=== PATIENT | female | born 1940 | race Caucasian/White ===

== ENCOUNTER 2018-11-17 14:17 | Inpatient (IN) | payer MEDICARE, MEDICAID ==
[~2018-11-17] VITALS: Ht 167.6 cm; Wt 82.1 kg
[2018-11-17 15:12] LABS: BASOPHILS % 0.7 % (0.0-2.0); EOSINOPHILS % 0.2 % (0.0-5.0); HEMATOCRIT. 27.1 % (36.0-48.0); HEMOGLOBIN. 8.8 g/dL (12.0-16.0); LYMPHOCYTES % 13.8 % (20.0-50.0); MEAN CORPUSCULAR HEMOGLOBIN 26.8 pg (28.0-32.0); MEAN CORPUSCULAR VOLUME 82.4 fL (81.0-99.0); MONOCYTES % 4.8 % (2.0-8.0); NEUTROPHILS % 80.5 % (40.0-76.0); PLATELET 207 x1000/uL (130-400); RED CELL DISTRIBUTION WIDTH 16.7 % (11.6-14.6)
[2018-11-17 15:17] LABS: CHLORIDE 106 mEq/L (98-107)
[2018-11-17] MEDS ORDERED: LORAZEPAM 2MG/ML CPJ IV PRN (23:45)
[2018-11-17] MEDS ORDERED: CLONIDINE 0.1MG TABLET PO PRN (23:45)
[2018-11-17] MEDS ORDERED: HYDROCODONE/ACETAMINOPHEN 5/325MG TABLET PO PRN (23:45)
[2018-11-17] MEDS ORDERED: ONDANSETRON HCL 4MG/2ML INJ IV PRN (23:45)
[2018-11-18] VITALS (7 sets, daily range): BP systolic 109–151; BP diastolic 45–76
[2018-11-18 00:20] LABS: TOTAL IRON BINDING CAPACITY 317 ug/dL (250-450)
[2018-11-18 01:59] LABS: CLARITY URINE CLOUDY (CLEAR); COLOR URINE YELLOW (YELLOW); KETONES URINE NEGATIVE (NEGATIVE); LEUKOCYTE ESTERASE URINE 3+ (NEGATIVE); NITRITE URINE NEGATIVE (NEGATIVE); OCCULT BLOOD URINE TRACE (NEGATIVE); PH URINE 6.5 (4.5-8.0); PROTEIN URINE NEGATIVE (NEGATIVE); SPECIFIC GRAVITY URINE 1.014 (1.005-1.030); UROBILINOGEN URINE 0.2 E.U./dL (0.2-1.0)
[2018-11-18 02:14] LABS: *AMPHETAMINES SCREEN URINE NEGATIVE (NEGATIVE); *BARBITURATES SCREEN URINE NEGATIVE (NEGATIVE); *BENZODIAZEPINES SCREEN URINE NEGATIVE (NEGATIVE); *COCAINE SCREEN URINE NEGATIVE (NEGATIVE); METHADONE URINE SCREEN NEGATIVE (NEGATIVE); OPIATES URINE SCREEN NEGATIVE (NEGATIVE)
[2018-11-18 02:15] LABS: CANNABINOID URINE SCREEN NEGATIVE (NEGATIVE); PHENCYCLIDINE URINE SCREEN NEGATIVE (NEGATIVE)
[2018-11-18] MEDS ORDERED: DEXTROSE 50% WATER 50ML SYRINGE IV PRN (05:00)
[2018-11-18] MEDS: SODIUM CHLORIDE 0.9% 1,000 ML IV SCH ×2 (05:35→21:08)
[2018-11-18] MEDS ORDERED: CEFTRIAXONE 1 G PREMIX 50 ML IV SCH (06:00)
[2018-11-18] MEDS: BLOOD SUGAR DIAGNOSTIC STRIP TEST SCH ×4 (06:32→21:06)
[2018-11-18] MEDS: INSULIN LISPRO 100 UNITS/ML SUBCUT SCH ×4 (07:30→21:05)
[2018-11-18] MEDS ORDERED: ENOXAPARIN 40MG/0.4ML SYR SUBCUT SCH ×2 (09:00→10:30)
[2018-11-18] MEDS ORDERED: LEVE1000 PO (11:18)
[2018-11-18] MEDS ORDERED: APIX5TAB PO (11:18)
[2018-11-18] MEDS ORDERED: WARF4TAB71 PO (11:18)
[2018-11-18] MEDS ORDERED: ATOR10TA69 PO (11:18)
[2018-11-18] MEDS ORDERED: DIGO125T82 PO (11:18)
[2018-11-18] MEDS ORDERED: CALC-769 PO (11:18)
[2018-11-18] MEDS ORDERED: SENN-139 PO (11:18)
[2018-11-18] MEDS ORDERED: MAX GT (11:18)
[2018-11-18 11:45] LABS: DIGOXIN 0.8 ng/mL (0.9-2.0)
[2018-11-18] MEDS: IRON SUCROSE COMPLEX 100 MG/5 ML ML IV SCH (11:45)
[2018-11-18] MEDS: APIXABAN 5 MG TABLET PO SCH ×2 (12:29→16:47)
[2018-11-18] MEDS: DILTIAZEM HCL 30MG TABLET PO SCH ×2 (14:00→21:07)
[2018-11-18] MEDS: LEVETIRACETAM 500MG TABLET PO SCH (16:47)
[2018-11-18] MEDS ORDERED: DIGOXIN 125MCG TABLET PO SCH (18:00)
[2018-11-18] MEDS ORDERED: ENOXAPARIN 80MG/0.8ML SYR SUBCUT SCH (21:00)
[2018-11-19] VITALS: BP 111/70
[2018-11-19 04:07] VITALS: BP 116/56
[2018-11-19] MEDS: DILTIAZEM HCL 30MG TABLET PO SCH ×2 (06:00→13:27)
[2018-11-19] MEDS ORDERED: CEFTRIAXONE 1 G PREMIX 50 ML IV SCH (06:00)
[2018-11-19] MEDS: BLOOD SUGAR DIAGNOSTIC STRIP TEST SCH ×2 (06:09→12:20)
[2018-11-19 06:39] LABS: BASOPHILS % 0.8 % (0.0-2.0); EOSINOPHILS % 1.4 % (0.0-5.0); HEMATOCRIT. 23.8 % (36.0-48.0); HEMOGLOBIN. 7.8 g/dL (12.0-16.0); LYMPHOCYTES % 26.4 % (20.0-50.0); MEAN CORPUSCULAR VOLUME 82.4 fL (81.0-99.0); MEAN PLATELET VOLUME 9.8 fl (7.4-10.4); MONOCYTES % 6.6 % (2.0-8.0); NEUTROPHILS % 64.8 % (40.0-76.0); PLATELET 197 x1000/uL (130-400); RED BLOOD CELL COUNT 2.89 mill/uL (4.2-5.4); RED CELL DISTRIBUTION WIDTH 16.9 % (11.6-14.6)
[2018-11-19] MEDS: INSULIN LISPRO 100 UNITS/ML SUBCUT SCH ×2 (07:50→12:50)
[2018-11-19 07:55] VITALS: BP_SYST 108; BP_SYST 133; BP_DIAS 49; BP_DIAS 66
[2018-11-19 07:56] VITALS: BP 128/59
[2018-11-19] MEDS: IRON SUCROSE COMPLEX 100 MG/5 ML ML IV SCH (10:04)
[2018-11-19] MEDS: LEVETIRACETAM 500MG TABLET PO SCH (10:05)
[2018-11-19] MEDS: APIXABAN 5 MG TABLET PO SCH (10:05)
[2018-11-19 11:57] VITALS: BP 119/53
[2018-11-19] MEDS ORDERED: TRIAMTERENE/HYDROCHLOROTHIAZID 75/50MG TABLET GT SCH (13:00)
[2018-11-19] MEDS ORDERED: DIGOXIN 125MCG TABLET PO SCH (18:00)
[2018-11-20] MEDS ORDERED: WARFARIN SODIUM 4MG TABLET PO SCH (09:00)
== END 2018-11-19 16:08 | disposition home or self-care (01) | DRG 74 ==
LOC: ER 14:17 → 6WST 17:50 → EDBEDREQTM 17:51 → EDBEDREQ 17:51 → ENRESERV 11-18 03:50
PROVIDERS: ADMIT Internal Medicine Nephrology; ATTEND Internal Medicine Nephrology
DX: G90.8 Other disorders of autonomic nervous system (principal); E44.1 Mild protein-calorie malnutrition; N39.0 Urinary tract infection, site not specified; I50.40 Unspecified combined systolic (congestive) and diastolic (congestive) heart failure; E11.65 Type 2 diabetes mellitus with hyperglycemia; E66.9 Obesity, unspecified; D50.0 Iron deficiency anemia secondary to blood loss (chronic); E86.0 Dehydration; I48.2 Chronic atrial fibrillation; I11.0 Hypertensive heart disease with heart failure; Z79.4 Long term (current) use of insulin; Z82.49 Family history of ischemic heart disease and other diseases of the circulatory system; Z88.0 Allergy status to penicillin; Z88.5 Allergy status to narcotic agent; Z88.1 Allergy status to other antibiotic agents; Z90.49 Acquired absence of other specified parts of digestive tract; Z71.3 Dietary counseling and surveillance; Z68.29 Body mass index [BMI] 29.0-29.9, adult
CPT/HCPCS: 36415; 71045; 80048; 80061; 80162; 80305; 82728; 82962; 83036; 83540; 83550; 83735; 83880; 84443; 84484; 93005; 93306; 93880; 97162; 99285; J0696; J1650; J1815

== ENCOUNTER 2022-05-17 10:08 | Emergency (ER) | payer MEDICARE, MEDICAID ==
[~2022-05-17] VITALS: Ht 167.6 cm; Wt 73.0 kg
[~2022-05-17 10:08] MED LIST: APIX5TAB PO; ATOR10TA69 PO; CALC-769 PO; DIGO125T80 PO; LEVE1000 PO; MAX GT; SENN-139 PO; WARF4TAB71 PO
[2022-05-17] MEDS ORDERED: KETOROLAC 60MG/2ML VIAL IM ONE (11:45)
[2022-05-17] MEDS ORDERED: SULFAMETHOXAZOLE/TRIMETHOPRIM 800/160MG TABLET PO ONE (11:45)
[2022-05-17 12:41] LABS: CLARITY URINE TURBID (CLEAR); COLOR URINE YELLOW (YELLOW); KETONES URINE NEGATIVE (NEGATIVE); LEUKOCYTE ESTERASE URINE 3+ (NEGATIVE); NITRITE URINE POSITIVE (NEGATIVE); OCCULT BLOOD URINE 1+ (NEGATIVE); PROTEIN URINE 1+ (NEGATIVE); SPECIFIC GRAVITY URINE 1.017 (1.005-1.030)
[2022-05-17] MEDS ORDERED: TOPUD MT (13:43)
[2022-05-17] MEDS ORDERED: SULF1TAB48 MT (13:43)
[2022-05-17 13:55] LABS: BASOPHILS % 0.9 % (0.0-2.0); EOSINOPHILS % 0.8 % (0.0-5.0); HEMATOCRIT. 37.3 % (36.0-48.0); HEMOGLOBIN. 12.4 g/dL (12.0-16.0); LYMPHOCYTES % 22.1 % (20.0-50.0); MEAN CORPUSCULAR HEMOGLOBIN 30.4 pg (28.0-32.0); MEAN CORPUSCULAR VOLUME 91.2 fL (81.0-99.0); MEAN PLATELET VOLUME 8.3 fl (7.4-10.4); MONOCYTES % 5.4 % (2.0-8.0); NEUTROPHILS % 70.8 % (40.0-76.0); PLATELET 332 x1000/uL (130-400); RED BLOOD CELL COUNT 4.09 mill/uL (4.2-5.4); RED CELL DISTRIBUTION WIDTH 13.8 % (11.6-14.6)
[2022-05-17 14:01] LABS: CHLORIDE 103 mEq/L (98-107)
[2022-05-17 14:07] LABS: PARTIAL THROMBOPLASTIN TIME 27.9 sec (23.4-31.0); PROTHROMBIN TIME 10.5 sec (9.6-11.0)
[2022-05-17 16:34] VITALS: BP 132/81
== END 2022-05-17 11:39 | disposition home or self-care (01) ==
LOC: ER 10:49
DX: N39.0 Urinary tract infection, site not specified (principal); Z88.0 Allergy status to penicillin; Z88.5 Allergy status to narcotic agent; Z88.1 Allergy status to other antibiotic agents
CPT/HCPCS: 36415; 80053; 81003; 83690; 85025; 85610; 85730; 87086; 96372; 99283; J1885

== ENCOUNTER 2023-03-18 07:45 | Inpatient (IN) | payer MEDICARE, MEDICAID ==
[~2023-03-18] VITALS: Ht 167.6 cm; Wt 73.9 kg
[~2023-03-18 07:45] MED LIST changes: +SULF1TAB48 MT; +TOPUD MT
[2023-03-18 07:46] VITALS: O2SAT 98
[2023-03-18 09:07] LABS: BASOPHILS % 0.5 % (0.0-2.0); EOSINOPHILS % 0.3 % (0.0-5.0); HEMATOCRIT. 39.9 % (36.0-48.0); HEMOGLOBIN. 12.5 g/dL (12.0-16.0); MEAN CORPUSCULAR HEMOGLOBIN 29.4 pg (28.0-32.0); MEAN CORPUSCULAR HGB CONC 31.3 g/dL (31.0-37.0); MEAN CORPUSCULAR VOLUME 94.1 fL (81.0-99.0); MEAN PLATELET VOLUME 9.4 fl (7.4-10.4); MONOCYTES % 5.2 % (2.0-8.0); PLATELET 213 x1000/uL (130-400); RED BLOOD CELL COUNT 4.25 mill/uL (4.2-5.4); WHITE BLOOD COUNT 11.3 x1000/uL (4.5-11.0)
[2023-03-18 09:31] LABS: CHLORIDE 107 mEq/L (98-107); INDEX HEMOLYSI 1 (1-3); INDEX ICTERIC 1 (1-4); INDEX LIPEMIC 1 (1-3); POTASSIUM 3.4 mEq/L (3.5-5.1); SODIUM 139 mEq/L (136-145)
[2023-03-18 09:41] LABS: ALANINE AMINOTRANSFERASE 16 IU/L (13-61); ALBUMIN 3.6 g/dL (3.4-5.0); ASPARTATE AMINOTRANSFERASE 14 IU/L (15-37); BILIRUBIN TOTAL 0.5 mg/dL (0.1-1.0); CALCIUM 9.1 mg/dL (8.5-10.1); CARBON DIOXIDE 25 mEq/L (21-32); CREATINE KINASE 531 IU/L (26-192); CREATININE 1.3 mg/dL (0.6-1.3); GLUCOSE 156 mg/dL (70-105); PROTEIN TOTAL 6.9 g/dL (6.0-8.3); TROPONIN I HIGH SENSITIVITY 16 ng/L (<54); UREA NITROGEN BLOOD 19 mg/dL (7-21)
[2023-03-18 10:16] LABS: LACTIC ACID 3.3 mmol/L (0.4-2.0)
[2023-03-18] MEDS ORDERED: MEROPENEM 1,000 MG in SODIUM CHLORIDE 0.9% 100 ML IV ONE (10:30)
[2023-03-18] MEDS ORDERED: VANCOMYCIN 1G PREMIX 200 ML IV ONE (10:30)
[2023-03-18] MEDS ORDERED: SODIUM CHLORIDE 0.9% 1000ML BAG (SEPSIS BOLUS) IV ONE (10:30)
[2023-03-18] MEDS ORDERED: ONDANSETRON HCL 4MG/2ML INJ IV PRN (15:00)
[2023-03-18] MEDS ORDERED: DOCUSATE SODIUM 100MG CAPSULE PO PRN (15:00)
[2023-03-18] MEDS ORDERED: IPRATROPIUM/ALBUTEROL 0.5-3(2.5)MG/3ML NEB HHN PRN (15:00)
[2023-03-18] MEDS ORDERED: CLONIDINE 0.1MG TABLET PO PRN (15:00)
[2023-03-18] MEDS ORDERED: ACETAMINOPHEN 325MG TABLET PO PRN (15:00)
[2023-03-18] MEDS ORDERED: DILTIAZEM HCL 30MG TABLET PO SCH (15:15)
[2023-03-18] MEDS ORDERED: POTASSIUM CHLORIDE 20MEQ TABLET SR PO SCH (15:15)
[2023-03-18] MEDS ORDERED: DIGOXIN 125MCG TABLET PO SCH (15:20)
[2023-03-18] MEDS ORDERED: VANCOMYCIN 1G PREMIX 200 ML IV NR (15:45)
[2023-03-18] MEDS ORDERED: MEROPENEM 1,000 MG in SODIUM CHLORIDE 0.9% 100 ML IV NR (15:45)
[2023-03-18] MEDS ORDERED: APIXABAN 5 MG TABLET PO SCH (17:00)
[2023-03-18] MEDS: DILTIAZEM HCL 30MG TABLET PO SCH (17:31)
[2023-03-18 21:00] VITALS: BP_SYST 141; BP_SYST 145; BP_DIAS 56; PULSE 112; PULSE 143; RESP 18; TEMP 98.2; TEMP 98.4
[2023-03-19] VITALS: BP 141/99; PULSE 133; RESP 20; TEMP 96.9
[2023-03-19] MEDS: DILTIAZEM HCL 30MG TABLET PO SCH ×2 (01:00→06:28)
[2023-03-19 04:00] VITALS: BP 114/84; PULSE 110; RESP 18; TEMP 97.1
[2023-03-19 06:57] LABS: BASOPHILS % 0.4 % (0.0-2.0); EOSINOPHILS % 1.9 % (0.0-5.0); HEMOGLOBIN. 11.2 g/dL (12.0-16.0); LYMPHOCYTES % 19.4 % (20.0-50.0); MEAN CORPUSCULAR HGB CONC 33.9 g/dL (31.0-37.0); MEAN CORPUSCULAR VOLUME 91.5 fL (81.0-99.0); MEAN PLATELET VOLUME 9.5 fl (7.4-10.4); MONOCYTES % 6.9 % (2.0-8.0); NEUTROPHILS % 71.4 % (40.0-76.0); PLATELET 183 x1000/uL (130-400); RED BLOOD CELL COUNT 3.61 mill/uL (4.2-5.4); RED CELL DISTRIBUTION WIDTH 13.7 % (11.6-14.6); WHITE BLOOD COUNT 7.7 x1000/uL (4.5-11.0)
[2023-03-19 08:00] VITALS: BP 152/91; PULSE 106; RESP 20; TEMP 98.2
[2023-03-19 08:10] LABS: CHLORIDE 106 mEq/L (98-107); INDEX HEMOLYSI 1 (1-3); INDEX ICTERIC 1 (1-4); INDEX LIPEMIC 1 (1-3); POTASSIUM 3.9 mEq/L (3.5-5.1); SODIUM 137 mEq/L (136-145)
[2023-03-19 08:33] LABS: CALCIUM 8.6 mg/dL (8.5-10.1); CARBON DIOXIDE 23 mEq/L (21-32); CREATININE 1.1 mg/dL (0.6-1.3); GLUCOSE 138 mg/dL (70-105); UREA NITROGEN BLOOD 17 mg/dL (7-21)
[2023-03-19 12:00] VITALS: BP 160/90; PULSE 136; RESP 22; TEMP 97.6
[2023-03-19] MEDS: ACETAMINOPHEN 325MG TABLET PO PRN ×2 (12:24→20:34)
[2023-03-19 13:07] LABS: DIGOXIN < 0.1 ng/mL (0.9-2.0)
[2023-03-19] MEDS: DILTIAZEM HCL 60MG TABLET PO SCH ×2 (13:22→18:41)
[2023-03-19] MEDS: LORAZEPAM 2MG/ML CPJ IV PRN ×2 (14:55→21:09)
[2023-03-19 16:00] VITALS: BP 131/76; PULSE 75; RESP 20; TEMP 97
[2023-03-19 16:02] LABS: T4 FREE 1.21 ng/dL (0.76-1.46); THYROID STIMULATING HORMONE 1.3 uIU/mL (0.36-3.74)
[2023-03-19] MEDS: APIXABAN 5 MG TABLET PO SCH (17:27)
[2023-03-19 18:04] LABS: CLARITY URINE CLEAR (CLEAR); COLOR URINE DARK YELLOW (YELLOW); GLUCOSE URINE NEGATIVE (NEGATIVE); KETONES URINE NEGATIVE (NEGATIVE); LEUKOCYTE ESTERASE URINE 3+ (NEGATIVE); NITRITE URINE NEGATIVE (NEGATIVE); OCCULT BLOOD URINE NEGATIVE (NEGATIVE); PROTEIN URINE 1+ (NEGATIVE); SPECIFIC GRAVITY URINE 1.007 (1.005-1.030); UROBILINOGEN URINE 0.2 E.U./dL (0.2-1.0)
[2023-03-19 18:18] LABS: BACTERIA URINE 1+; RBC URINE 0-2 /hpf (0-2); SQUAMOUS EPITHELIAL CELL URINE FEW /lpf (RARE/1+); WBC URINE 25-50 /hpf (0-2)
[2023-03-19] MEDS: DIGOXIN 250MCG TABLET PO SCH (18:41)
[2023-03-19 20:00] VITALS: BP 154/110; PULSE 156; RESP 22; TEMP 98.1
[2023-03-20] VITALS (7 sets, daily range): BP systolic 127–175; BP diastolic 63–97; PULSE 66–131; RESP 20–22; TEMP 97.5–98.8
[2023-03-20] MEDS: DILTIAZEM HCL 60MG TABLET PO SCH ×2 (00:24→05:32)
[2023-03-20] MEDS: APIXABAN 5 MG TABLET PO SCH ×2 (09:45→18:32)
[2023-03-20] MEDS ORDERED: DILTIAZEM HCL 5MG/ML 5ML VIAL IV NR (10:00)
[2023-03-20 11:42] LABS: BASOPHILS % 0.4 % (0.0-2.0); EOSINOPHILS % 1.8 % (0.0-5.0); HEMATOCRIT. 34.4 % (36.0-48.0); HEMOGLOBIN. 11.1 g/dL (12.0-16.0); LYMPHOCYTES % 14.2 % (20.0-50.0); MEAN CORPUSCULAR HEMOGLOBIN 30.1 pg (28.0-32.0); MEAN CORPUSCULAR HGB CONC 32.2 g/dL (31.0-37.0); MEAN CORPUSCULAR VOLUME 93.4 fL (81.0-99.0); MEAN PLATELET VOLUME 9.2 fl (7.4-10.4); MONOCYTES % 6.3 % (2.0-8.0); NEUTROPHILS % 77.3 % (40.0-76.0); PLATELET 169 x1000/uL (130-400); RED BLOOD CELL COUNT 3.68 mill/uL (4.2-5.4); WHITE BLOOD COUNT 7.6 x1000/uL (4.5-11.0)
[2023-03-20 11:50] LABS: CALCIUM 8.2 mg/dL (8.5-10.1); POTASSIUM 3.9 mEq/L (3.5-5.1)
[2023-03-20] MEDS ORDERED: CEFTRIAXONE 1GM PREMIX 50 ML IV SCH (13:45)
[2023-03-20] MEDS: DILTIAZEM HCL 90MG TABLET PO SCH ×2 (14:00→18:31)
[2023-03-20 16:25] LABS: INDEX HEMOLYSI 1 (1-3); INDEX ICTERIC 1 (1-4); INDEX LIPEMIC 1 (1-3)
[2023-03-20 16:32] LABS: IRON 19 ug/dL (50-175); TOTAL IRON BINDING CAPACITY 230 ug/dL (250-450)
[2023-03-20 16:53] LABS: FOLIC ACID (FOLATE) SERUM 7.9 ng/mL (>5.38)
[2023-03-20] MEDS: CEFTRIAXONE 1,000 MG in DEXTROSE 5% WATER 50 ML IV SCH (17:43)
[2023-03-20] MEDS: DIGOXIN 250MCG TABLET PO SCH (18:28)
[2023-03-21] VITALS: BP 165/79; PULSE 77; RESP 20; TEMP 97.2
[2023-03-21] MEDS: DILTIAZEM HCL 90MG TABLET PO SCH ×3 (01:10→12:28)
[2023-03-21 04:00] VITALS: BP 145/60; PULSE 76; RESP 20; TEMP 97.4
[2023-03-21 08:00] VITALS: BP 148/71; PULSE 68; RESP 16; TEMP 97.1
[2023-03-21] MEDS: APIXABAN 5 MG TABLET PO SCH (08:17)
[2023-03-21] MEDS ORDERED: IRON SUCROSE COMPLEX 100 MG/5 ML ML IV SCH (09:15)
[2023-03-21 11:13] LABS: BASOPHILS % 0.4 % (0.0-2.0); EOSINOPHILS % 2.9 % (0.0-5.0); HEMATOCRIT. 32.6 % (36.0-48.0); HEMOGLOBIN. 10.8 g/dL (12.0-16.0); LYMPHOCYTES % 17.1 % (20.0-50.0); MEAN CORPUSCULAR HEMOGLOBIN 30.6 pg (28.0-32.0); MEAN CORPUSCULAR VOLUME 92.7 fL (81.0-99.0); MEAN PLATELET VOLUME 9.3 fl (7.4-10.4); NEUTROPHILS % 72.6 % (40.0-76.0); PLATELET 173 x1000/uL (130-400); RED BLOOD CELL COUNT 3.52 mill/uL (4.2-5.4); RED CELL DISTRIBUTION WIDTH 13.7 % (11.6-14.6); WHITE BLOOD COUNT 6.8 x1000/uL (4.5-11.0)
[2023-03-21 11:41] LABS: CALCIUM 8.1 mg/dL (8.5-10.1); DIGOXIN 0.9 ng/mL (0.9-2.0)
[2023-03-21 12:00] VITALS: BP 137/65; PULSE 62; RESP 16; TEMP 97
[2023-03-21] MEDS ORDERED: FERROUS SULFATE 325MG TABLET PO SCH (12:40)
[2023-03-21] MEDS: CEFTRIAXONE 1,000 MG in DEXTROSE 5% WATER 50 ML IV SCH ×2 (15:00→15:30)
[2023-03-21 15:49] VITALS: BP 148/71; PULSE 68; TEMP 97.1
[2023-03-21 16:00] VITALS: BP 128/83; PULSE 56; RESP 16; TEMP 97
== END 2023-03-21 16:30 | disposition home or self-care (01) | DRG 552 ==
LOC: ER 07:45 → 8WST 12:06 → EDBEDREQ 12:09 → EDBEDREQTM 12:09
PROVIDERS: ADMIT Internal Medicine; ATTEND Internal Medicine
DX: M48.02 Spinal stenosis, cervical region (principal); I48.20 Chronic atrial fibrillation, unspecified; N39.0 Urinary tract infection, site not specified; E87.20 Acidosis, unspecified; E87.6 Hypokalemia; I10 Essential (primary) hypertension; E11.9 Type 2 diabetes mellitus without complications; G89.29 Other chronic pain; W18.30XA Fall on same level, unspecified, initial encounter; Z79.01 Long term (current) use of anticoagulants; Z85.028 Personal history of other malignant neoplasm of stomach; Z85.038 Personal history of other malignant neoplasm of large intestine; Z88.0 Allergy status to penicillin
CPT/HCPCS: 36415; 70551; 71045; 72141; 72170; 80048; 80053; 80162; 81003; 82550; 82607; 82728; 82746; 82962; 83036; 83540; 83550; 83605; 84145; 84439; 84443; 84481; 84484; 85025; 93005; 93306; 93880; 97162; 97166; 99291; J0696; J2060; J2185; J3370; J7030; J7050; J7060

== ENCOUNTER 2024-02-11 20:45 | Emergency (ER) | payer MEDICARE, MEDICAID ==
[~2024-02-11] VITALS: Ht 165.1 cm; Wt 64.0 kg
[2024-02-11 21:04] VITALS: TEMP 97.3; O2SAT 98
[2024-02-11] MEDS ORDERED: ACET-2708 MT (22:53)
[2024-02-11] MEDS ORDERED: LIDO700A30 TP (22:53)
[2024-02-12 00:23] VITALS: BP 152/98; PULSE 96; RESP 16
== END 2024-02-12 00:25 | disposition home or self-care (01) ==
LOC: ER 20:45
DX: M51.36 Other intervertebral disc degeneration, lumbar region (principal); E11.9 Type 2 diabetes mellitus without complications; I10 Essential (primary) hypertension; I48.91 Unspecified atrial fibrillation; R51.9 Headache, unspecified; Z90.49 Acquired absence of other specified parts of digestive tract; Z88.0 Allergy status to penicillin; Z88.5 Allergy status to narcotic agent; Z88.8 Allergy status to other drugs, medicaments and biological substances
CPT/HCPCS: 72128; 72131; 72170; 99284

== ENCOUNTER 2024-10-13 15:16 | Inpatient (IN) | payer MEDICARE, MEDICAID ==
[~2024-10-13] VITALS: Ht 170.2 cm; Wt 72.6 kg
[~2024-10-13 15:16] MED LIST changes: +ACET-2708 MT; +LIDO700A30 TP
[2024-10-13 15:49] LABS: CLARITY URINE TURBID (CLEAR); COLOR URINE DARK YELLOW (YELLOW); GLUCOSE URINE NEGATIVE (NEGATIVE); KETONES URINE TRACE (NEGATIVE); LEUKOCYTE ESTERASE URINE 3+ (NEGATIVE); NITRITE URINE POSITIVE (NEGATIVE); OCCULT BLOOD URINE 2+ (NEGATIVE); PROTEIN URINE 3+ (NEGATIVE); SPECIFIC GRAVITY URINE 1.032 (1.005-1.030)
[2024-10-13 16:06] LABS: BACTERIA URINE 4+; SQUAMOUS EPITHELIAL CELL URINE 1+ /lpf (RARE/1+); WBC URINE TNTC /hpf (0-2)
[2024-10-13 16:33] LABS: BASOPHILS % 1.2 % (0.0-2.0); EOSINOPHILS % 1.4 % (0.0-5.0); HEMOGLOBIN. 13.3 g/dL (12.0-16.0); MEAN CORPUSCULAR HEMOGLOBIN 29.6 pg (28.0-32.0); MEAN CORPUSCULAR HGB CONC 32.3 g/dL (31.0-37.0); MEAN CORPUSCULAR VOLUME 91.4 fL (81.0-99.0); MEAN PLATELET VOLUME 9.4 fl (7.4-10.4); MONOCYTES % 6.5 % (2.0-8.0); NEUTROPHILS % 63.9 % (40.0-76.0); PLATELET 214 x1000/uL (130-400); RED BLOOD CELL COUNT 4.48 mill/uL (4.2-5.4); RED CELL DISTRIBUTION WIDTH 14.2 % (11.6-14.6); WHITE BLOOD COUNT 8.5 x1000/uL (4.5-11.0)
[2024-10-13 16:40] LABS: POTASSIUM 3.9 mEq/L (3.5-5.1)
[2024-10-13 16:41] LABS: CALCIUM 10.2 mg/dL (8.7-10.4)
[2024-10-13 16:46] LABS: CREATININE 1.5 mg/dL (0.6-1.0)
[2024-10-13] MEDS: CEFTRIAXONE 1GM/50ML 50 ML IV ONE (18:41)
[2024-10-13] MEDS: LABETALOL 5MG/ML 4ML INJ IV ONE (19:04)
[2024-10-13 20:00] VITALS: BP 176/89; PULSE 72; RESP 16; TEMP 36.3; O2SAT 97
[2024-10-13] MEDS ORDERED: HYDROCODONE/ACETAMINOPHEN 5/325MG TABLET PO PRN (21:45)
[2024-10-13] MEDS ORDERED: IPRATROPIUM/ALBUTEROL 0.5-3(2.5)MG/3ML NEB HHN PRN (21:45)
[2024-10-13] MEDS ORDERED: ONDANSETRON HCL 4MG/2ML INJ IV PRN (21:45)
[2024-10-13] MEDS: ENOXAPARIN 30MG/0.3ML SYR SUBCUT SCH (22:33)
[2024-10-13] MEDS ORDERED: ACETAMINOPHEN 650MG/20.3ML UDC GT PRN (23:30)
[2024-10-14] VITALS: BP 180/96; PULSE 64; RESP 17; TEMP 36.5; O2SAT 98
[2024-10-14] MEDS: SODIUM CHLORIDE 0.45% 1,000 ML IV SCH (00:02)
[2024-10-14 01:19] LABS: CREATINE KINASE MB FRACTION 1.5 ng/mL (0.5-3.6)
[2024-10-14 01:20] LABS: TROPONIN I HIGH SENSITIVITY 15 ng/L (3.0-34)
[2024-10-14 01:21] LABS: CREATINE KINASE 47 IU/L (34-145)
[2024-10-14 03:09] VITALS: BP 183/96; PULSE 64; RESP 17; TEMP 36.5
[2024-10-14] MEDS ORDERED: DEXTROSE 50% WATER 50ML SYRINGE IV PRN (03:15)
[2024-10-14 04:00] VITALS: BP 119/81; PULSE 70; RESP 18; TEMP 36.4; O2SAT 97
[2024-10-14] MEDS: BLOOD SUGAR DIAGNOSTIC STRIP TEST SCH (06:20)
[2024-10-14] MEDS: DILTIAZEM HCL 60MG TABLET PO SCH (06:53)
[2024-10-14] MEDS: INSULIN LISPRO 100 UNITS/ML SUBCUT SCH (07:55)
[2024-10-14 08:00] VITALS: BP_SYST 147; BP_SYST 158; BP_DIAS 81; BP_DIAS 85; PULSE 77; PULSE 81; RESP 18; RESP 20; TEMP 36.5; TEMP 36.6; O2SAT 97; O2SAT 98
[2024-10-14 08:09] LABS: BASOPHILS % 0.6 % (0.0-2.0); EOSINOPHILS % 0.5 % (0.0-5.0); HEMATOCRIT. 40.3 % (36.0-48.0); HEMOGLOBIN. 13.2 g/dL (12.0-16.0); MEAN CORPUSCULAR HEMOGLOBIN 29.8 pg (28.0-32.0); MEAN CORPUSCULAR HGB CONC 32.8 g/dL (31.0-37.0); MEAN CORPUSCULAR VOLUME 90.8 fL (81.0-99.0); MEAN PLATELET VOLUME 9.8 fl (7.4-10.4); MONOCYTES % 5.3 % (2.0-8.0); NEUTROPHILS % 75.6 % (40.0-76.0); PLATELET 205 x1000/uL (130-400); RED BLOOD CELL COUNT 4.44 mill/uL (4.2-5.4); RED CELL DISTRIBUTION WIDTH 14.6 % (11.6-14.6); WHITE BLOOD COUNT 9.4 x1000/uL (4.5-11.0)
[2024-10-14 08:14] LABS: POTASSIUM 3.6 mEq/L (3.5-5.1)
[2024-10-14 08:15] LABS: CALCIUM 9.7 mg/dL (8.7-10.4)
[2024-10-14 08:20] LABS: CREATININE 1.4 mg/dL (0.6-1.0)
[2024-10-14 08:21] LABS: CREATINE KINASE MB FRACTION 1.6 ng/mL (0.5-3.6)
[2024-10-14 08:26] LABS: T4 FREE 1.51 ng/dL (0.89-1.76); THYROID STIMULATING HORMONE 2.33 uIU/mL (0.55-4.78)
[2024-10-14] MEDS: ASPIRIN 81MG EC TABLET PO SCH (11:20)
[2024-10-14 12:00] VITALS: BP 170/96; PULSE 79; RESP 18; TEMP 36.3; O2SAT 98
[2024-10-14] MEDS: DOXYCYCLINE HYCLATE 100MG CAPSULE PO SCH (16:12)
[2024-10-14] MEDS: APIXABAN 5 MG TABLET PO SCH (16:12)
[2024-10-14] MEDS ORDERED: CEFTRIAXONE 1GM/50ML 50 ML IV SCH (20:00)
[2024-10-14] MEDS: LEVETIRACETAM 500MG TABLET PO SCH (22:27)
[2024-10-15] VITALS: BP 173/103; PULSE 67; RESP 18; TEMP 36.4; O2SAT 95
[2024-10-15] MEDS: CLONIDINE 0.1MG TABLET PO PRN (02:17)
[2024-10-15 08:00] VITALS: BP 120/63; PULSE 59; RESP 16; TEMP 36.3; O2SAT 99
[2024-10-15 12:00] VITALS: BP 95/62; PULSE 62; RESP 14; TEMP 36.3; O2SAT 100
[2024-10-15 16:00] VITALS: BP 137/57; PULSE 54; RESP 14; TEMP 36.4; O2SAT 100
[2024-10-15] MEDS ORDERED: MIRT-89 PO (16:16)
[2024-10-15] MEDS ORDERED: FERR325T30 PO (16:16)
[2024-10-15] MEDS ORDERED: FOLI-43 PO (16:16)
[2024-10-15] MEDS ORDERED: METF-414 PO (16:16)
[2024-10-15] MEDS ORDERED: CYAN-50 PO (16:16)
[2024-10-15 18:20] LABS: BASOPHILS % 0.8 % (0.0-2.0); EOSINOPHILS % 1.2 % (0.0-5.0); HEMATOCRIT. 37.7 % (36.0-48.0); HEMOGLOBIN. 12.2 g/dL (12.0-16.0); LYMPHOCYTES % 28.7 % (20.0-50.0); MEAN CORPUSCULAR HGB CONC 32.5 g/dL (31.0-37.0); MEAN CORPUSCULAR VOLUME 92.5 fL (81.0-99.0); MEAN PLATELET VOLUME 9.7 fl (7.4-10.4); MONOCYTES % 6.7 % (2.0-8.0); NEUTROPHILS % 62.6 % (40.0-76.0); PLATELET 170 x1000/uL (130-400); RED BLOOD CELL COUNT 4.07 mill/uL (4.2-5.4); RED CELL DISTRIBUTION WIDTH 14.7 % (11.6-14.6); WHITE BLOOD COUNT 6.3 x1000/uL (4.5-11.0)
[2024-10-15 18:22] LABS: CALCIUM 9.4 mg/dL (8.7-10.4); POTASSIUM 3.8 mEq/L (3.5-5.1)
[2024-10-15 18:28] LABS: CREATININE 1.1 mg/dL (0.6-1.0)
[2024-10-15] MEDS: MIRTAZAPINE 15MG TABLET PO SCH (22:00)
[2024-10-16] VITALS (11 sets, daily range): BP systolic 74–178; BP diastolic 41–96; PULSE 73–100; RESP 18–20; TEMP 36–36.6; O2SAT 96–100
[2024-10-16] MEDS ORDERED: DIGO125T PO (14:08)
[2024-10-16] MEDS ORDERED: ERGO1250 PO (14:10)
[2024-10-16] MEDS ORDERED: CEPH500C2 PO (14:32)
[2024-10-16] MEDS: CEPHALEXIN 250MG CAPSULE PO SCH (15:11)
[2024-10-16] MEDS: INFLUENZA VACCINE 05/PF 0.5 ML SYRINGE IM ONE (15:23)
[2024-10-16] MEDS ORDERED: DILT60TA35 MT (15:28)
[2024-10-16] MEDS: PNEUMOCOCCAL 20-VAL CONJ-DIP CRM 0.5ML IM ONE (16:23)
[2024-10-16] MEDS ORDERED: DILTIAZEM HCL 60MG TABLET PO SCH (21:00)
[2024-10-17] MEDS ORDERED: CYANOCOBALAMIN 1000MCG TABLET PO SCH (09:00)
[2024-10-17] MEDS ORDERED: FOLIC ACID 1MG TABLET PO SCH (09:00)
[2024-10-18] MEDS ORDERED: FERROUS SULFATE 325MG TABLET PO SCH (09:00)
== END 2024-10-16 18:05 | disposition home or self-care (01) | DRG 689 ==
LOC: ER 15:16 → EDBEDREQ 16:38 → EDBEDREQTM 18:26 → 5WST 18:26 → EDBEDREQ 18:26 → 5WST 10-14 17:09
PROVIDERS: ADMIT Internal Medicine; ATTEND Internal Medicine
DX: N30.90 Cystitis, unspecified without hematuria (principal); G93.41 Metabolic encephalopathy; N17.9 Acute kidney failure, unspecified; E86.0 Dehydration; I48.91 Unspecified atrial fibrillation; G40.909 Epilepsy, unspecified, not intractable, without status epilepticus; I10 Essential (primary) hypertension; E11.9 Type 2 diabetes mellitus without complications; B96.20 Unspecified Escherichia coli [E. coli] as the cause of diseases classified elsewhere; E78.00 Pure hypercholesterolemia, unspecified; Z79.84 Long term (current) use of oral hypoglycemic drugs; Z79.01 Long term (current) use of anticoagulants; Z79.899 Other long term (current) drug therapy; Z85.028 Personal history of other malignant neoplasm of stomach; Z87.440 Personal history of urinary (tract) infections; Z88.0 Allergy status to penicillin; Z90.710 Acquired absence of both cervix and uterus
CPT/HCPCS: 36415; 80048; 80061; 81003; 82550; 82553; 82962; 83036; 84439; 84443; 84484; 85025; 87077; 87186; 90686; 90732; 99285; A4606; J0696; J1650; J1815; J3490

== ENCOUNTER 2024-12-02 17:57 | Emergency (ER) | payer MEDICARE, MEDICAID ==
[~2024-12-02] VITALS: Ht 170.2 cm; Wt 68.0 kg
[~2024-12-02 17:57] MED LIST changes: +CEPH500C2 PO; +CYAN-50 PO; +DIGO125T PO; -DIGO125T80 PO; +DILT60TA35 MT; +ERGO1250 PO; +FERR325T30 PO; +FOLI-43 PO; -LEVE1000 PO; -LIDO700A30 TP; -MAX GT; +METF-414 PO; +MIRT-89 PO; -SENN-139 PO; -SULF1TAB48 MT; -TOPUD MT; -WARF4TAB71 PO
[2024-12-02 18:11] VITALS: O2SAT 98
[2024-12-02 18:19] LABS: CLARITY URINE TURBID (CLEAR); GLUCOSE URINE NEGATIVE (NEGATIVE); KETONES URINE TRACE (NEGATIVE); LEUKOCYTE ESTERASE URINE 3+ (NEGATIVE); NITRITE URINE NEGATIVE (NEGATIVE); OCCULT BLOOD URINE 1+ (NEGATIVE); PH URINE 5.5 (4.5-8.0); PROTEIN URINE 3+ (NEGATIVE); SPECIFIC GRAVITY URINE 1.025 (1.005-1.030)
[2024-12-02 19:12] LABS: BASOPHILS % 0.9 % (0.0-2.0); EOSINOPHILS % 1.3 % (0.0-5.0); HEMATOCRIT. 39.5 % (36.0-48.0); HEMOGLOBIN. 12.9 g/dL (12.0-16.0); LYMPHOCYTES % 22.8 % (20.0-50.0); MEAN CORPUSCULAR HEMOGLOBIN 30.3 pg (28.0-32.0); MEAN CORPUSCULAR HGB CONC 32.7 g/dL (31.0-37.0); MEAN CORPUSCULAR VOLUME 92.5 fL (81.0-99.0); MEAN PLATELET VOLUME 10.2 fl (7.4-10.4); MONOCYTES % 5.4 % (2.0-8.0); NEUTROPHILS % 69.6 % (40.0-76.0); PLATELET 189 x1000/uL (130-400); RED BLOOD CELL COUNT 4.27 mill/uL (4.2-5.4); RED CELL DISTRIBUTION WIDTH 14.2 % (11.6-14.6); WHITE BLOOD COUNT 8.6 x1000/uL (4.5-11.0)
[2024-12-02 19:20] LABS: POTASSIUM 3.9 mEq/L (3.5-5.1)
[2024-12-02 19:21] LABS: CALCIUM 9.5 mg/dL (8.7-10.4)
[2024-12-02 19:21] LABS: COLOR URINE YELLOW (YELLOW)
[2024-12-02 19:23] LABS: WBC URINE TNTC /hpf (0-2)
[2024-12-02 19:24] LABS: RBC URINE NONE SEEN /hpf (0-2)
[2024-12-02 19:25] LABS: SQUAMOUS EPITHELIAL CELL URINE 1+ /lpf (RARE/1+)
[2024-12-02 19:25] LABS: CREATININE 1.1 mg/dL (0.6-1.0)
[2024-12-02 19:26] LABS: BACTERIA URINE 1+
[2024-12-02] MEDS ORDERED: CEFP200T14 MT (20:07)
[2024-12-02 20:14] VITALS: BP 190/101; PULSE 74; RESP 14; TEMP 37.1; O2SAT 99
== END 2024-12-02 20:30 | disposition home or self-care (01) ==
LOC: ER 17:57
DX: N39.0 Urinary tract infection, site not specified (principal); E78.00 Pure hypercholesterolemia, unspecified; E11.9 Type 2 diabetes mellitus without complications; I10 Essential (primary) hypertension; Z88.1 Allergy status to other antibiotic agents; Z88.0 Allergy status to penicillin; Z88.5 Allergy status to narcotic agent; Z79.899 Other long term (current) drug therapy; Z98.890 Other specified postprocedural states
CPT/HCPCS: 36415; 80048; 81003; 85025; 87077; 99283

== ENCOUNTER 2025-01-19 13:13 | Emergency (ER) | payer MEDICARE, MEDICAID ==
[~2025-01-19] VITALS: Ht 167.6 cm; Wt 65.0 kg
[~2025-01-19 13:13] MED LIST changes: -ATOR10TA69 PO; -CEPH500C2 PO; +CLOP-31 PO; -DIGO125T PO; -DILT60TA35 MT; +DOCU-422 PO; -ERGO1250 PO; -FERR325T30 PO; +LIP40 PO; -METF-414 PO; +NITR100C11 PO
[2025-01-19 13:26] VITALS: O2SAT 98
[2025-01-19 15:56] VITALS: BP 120/78; PULSE 70; RESP 16; TEMP 36.7; O2SAT 98
== END 2025-01-19 16:48 | disposition home or self-care (01) ==
LOC: ER 13:13
DX: S00.83XA Contusion of other part of head, initial encounter (principal); S09.90XA Unspecified injury of head, initial encounter; E11.9 Type 2 diabetes mellitus without complications; E78.00 Pure hypercholesterolemia, unspecified; F03.90 Unspecified dementia, unspecified severity, without behavioral disturbance, psychotic disturbance, mood disturbance, and anxiety; I10 Essential (primary) hypertension; Z79.01 Long term (current) use of anticoagulants; Z79.02 Long term (current) use of antithrombotics/antiplatelets; Z79.899 Other long term (current) drug therapy; Z98.890 Other specified postprocedural states; Z88.0 Allergy status to penicillin; Z88.1 Allergy status to other antibiotic agents; Z88.5 Allergy status to narcotic agent; W19.XXXA Unspecified fall, initial encounter; Y93.89 Activity, other specified; Y92.89 Other specified places as the place of occurrence of the external cause; Y99.8 Other external cause status
CPT/HCPCS: 99284

== ENCOUNTER 2025-03-11 16:00 | Emergency (ER) | payer OTHER, MEDICAID ==
[~2025-03-11] VITALS: Ht 167.6 cm; Wt 59.0 kg
[2025-03-11 16:05] VITALS: O2SAT 99
[2025-03-11 19:38] LABS: BASOPHILS % 0.7 % (0.0-2.0); EOSINOPHILS % 1.2 % (0.0-5.0); HEMATOCRIT. 42.1 % (36.0-48.0); HEMOGLOBIN. 13.7 g/dL (12.0-16.0); LYMPHOCYTES % 22.5 % (20.0-50.0); MEAN PLATELET VOLUME 9.6 fl (7.4-10.4); MONOCYTES % 7.4 % (2.0-8.0); NEUTROPHILS % 68.2 % (40.0-76.0); PLATELET 278 x1000/uL (130-400); RED BLOOD CELL COUNT 4.60 mill/uL (4.2-5.4); RED CELL DISTRIBUTION WIDTH 13.9 % (11.6-14.6)
[2025-03-11 19:56] LABS: CREATININE 1.1 mg/dL (0.6-1.0); UREA NITROGEN BLOOD 21.0 mg/dL (9-23)
[2025-03-11] MEDS: POTASSIUM CHLORIDE 20MEQ TABLET SR PO ONE (20:20)
[2025-03-11 20:31] VITALS: BP 170/96; PULSE 72; RESP 18; TEMP 36.8; O2SAT 99
[2025-03-11] MEDS: POTASSIUM CHLORIDE 20MEQ/PACKET PO ONE (20:31)
== END 2025-03-11 20:31 | disposition home or self-care (01) ==
LOC: ER 16:18
DX: R51.9 Headache, unspecified (principal); F03.90 Unspecified dementia, unspecified severity, without behavioral disturbance, psychotic disturbance, mood disturbance, and anxiety; E11.9 Type 2 diabetes mellitus without complications; E78.00 Pure hypercholesterolemia, unspecified; I10 Essential (primary) hypertension; Z79.899 Other long term (current) drug therapy; Z88.0 Allergy status to penicillin; Z88.1 Allergy status to other antibiotic agents; Z88.5 Allergy status to narcotic agent
CPT/HCPCS: 36415; 80048; 85025; 99284

== ENCOUNTER 2025-03-30 13:31 | Emergency (ER) | payer OTHER, MEDICAID ==
[~2025-03-30] VITALS: Ht 167.6 cm; Wt 62.0 kg
[2025-03-30 13:34] VITALS: TEMP 36.3; O2SAT 100
[2025-03-30] MEDS ORDERED: TOPUD MT (14:08)
[2025-03-30] MEDS: ACETAMINOPHEN 325MG TABLET PO ONE (14:35)
[2025-03-30 14:45] VITALS: BP 153/60; PULSE 55; RESP 18; O2SAT 100
== END 2025-03-30 14:48 | disposition home or self-care (01) ==
LOC: ER 13:45
DX: S09.90XA Unspecified injury of head, initial encounter (principal); I10 Essential (primary) hypertension; F03.90 Unspecified dementia, unspecified severity, without behavioral disturbance, psychotic disturbance, mood disturbance, and anxiety; E11.9 Type 2 diabetes mellitus without complications; Z86.73 Personal history of transient ischemic attack (TIA), and cerebral infarction without residual deficits; Z79.02 Long term (current) use of antithrombotics/antiplatelets; Z79.899 Other long term (current) drug therapy; Z79.01 Long term (current) use of anticoagulants; Z88.5 Allergy status to narcotic agent; Z88.1 Allergy status to other antibiotic agents; Z88.0 Allergy status to penicillin; W01.10XA Fall on same level from slipping, tripping and stumbling with subsequent striking against unspecified object, initial encounter; Y93.01 Activity, walking, marching and hiking; Y92.89 Other specified places as the place of occurrence of the external cause; Y99.8 Other external cause status
CPT/HCPCS: 99284